=== PATIENT | male | born 1985 | race Caucasian/White ===

== ENCOUNTER 2017-04-08 18:23 | Emergency (ER) | payer OTHER ==
[2017-04-08] MEDS: HYDROCODONE/APAP (5/325) TAB PO (21:30)
[2017-04-08] MEDS: CEPHALEXIN 500 MG CAP PO (23:25)
== END 2017-04-08 23:31 | disposition home or self-care (01) ==
LOC: FTE 18:23
DX: S61.247A Puncture wound with foreign body of left little finger without damage to nail, initial encounter (principal); W26.8XXA Contact with other sharp object(s), not elsewhere classified, initial encounter; Y92.9 Unspecified place or not applicable
CPT/HCPCS: 73140; 99283-25